=== PATIENT | male | born 1985 | race Caucasian/White ===

== ENCOUNTER 2017-01-23 21:34 | Emergency (ER) | payer OTHER ==
[~2017-01-23] VITALS: Ht 170.2 cm; Wt 72.6 kg
[~2017-01-23 21:34] MED LIST: ADVAIR 500-501 EACH; ALDACTONE25 MG PO; AMOXICILLIN875 MG PO; AZITHROMYCIN 2250 MG PO; COMBIVENT; DOXYCYCLINE 10100 MG PO; DUONEB 2.5-0.5 M3 ML; FLOVENT HFA 2220 MC1; HYDROCODONE-AP1 EAC6 PO; HYDROCODONE-APA10 ML PO; MEDROLDOSEPACK PO; NORCO 5-325 TA1 EAC1 PO; NORCO 5-325 TA1 EACH PO; ONDANSETRON HCL4 M2 PO; PENICILLIN VK500 MG PO; PERCOCET 10-321 EACH PO; PERCOCET 5-3251 EACH PO; PREDNISONE 20 M20 M1 PO; PREDNISONE 20 M20 MG PO; PREDNISONE50 MG PO; PROAIR HFA8.5 GM; PROVENTIL HFA6.7 G1 INH; SYMBICORT160 MCG/4. INH; TUMS; TUSSIONEX PENN473 ML PO; TUSSIONEX PENNKI1 ML PO; VENTOLIN HFA 1818 GM INH; VENTOLIN17 GM INH; VICODIN 5-5001 EACH PO; ZANAFLEX4 M1 PO; ZOFRAN4 MG PO; ZPAK PO
[2017-01-23 22:04] VITALS: BP 137/90
[2017-01-23] MEDS ORDERED: ZOFRAN ODT4 MG PO (22:14)
[2017-01-24] MEDS ORDERED: ONDANSETRON HCL4 M2 PO (17:05)
[2017-01-24] MEDS ORDERED: PRILOSEC OTC20 MG PO (17:05)
== END 2017-01-23 22:20 | disposition home or self-care (01) ==
LOC: ER 21:34
DX: G89.29 Other chronic pain (principal); R10.11 Right upper quadrant pain; R19.7 Diarrhea, unspecified; R11.0 Nausea; J45.909 Unspecified asthma, uncomplicated; Z90.49 Acquired absence of other specified parts of digestive tract; Z90.89 Acquired absence of other organs; Z88.6 Allergy status to analgesic agent; Z88.8 Allergy status to other drugs, medicaments and biological substances

== ENCOUNTER 2017-01-24 15:08 | Emergency (ER) | payer OTHER ==
[~2017-01-24] VITALS: Ht 170.2 cm; Wt 72.6 kg
[~2017-01-24 15:08] MED LIST changes: +ZOFRAN ODT4 MG PO
[2017-01-24 15:24] LABS: URINE BILIRUBIN NEGATIVE (Negative); URINE BLOOD 1+ (Negative); URINE COLOR YELLOW; URINE GLUCOSE-RANDOM* NEGATIVE (Negative); URINE KETONES NEGATIVE (Negative); URINE NITRITE NEGATIVE (Negative); URINE PROTEIN (DIPSTICK) NEGATIVE (Negative); URINE SPECIFIC GRAVITY 1.025 (1.003-1.035); URINE UROBILINOGEN 0.2 E.U./dl (0.2-1.0)
[2017-01-24 15:27] LABS: BACTERIA None Seen /HPF (None Seen); CASTS None Seen /LPF (None Seen); CRYSTALS None Seen /LPF (None Seen); SQUAMOUS None Seen /LPF (0-3); URINE RBC 0-2 Rare /HPF (0-2); URINE WBC None Seen /HPF (0-5)
[2017-01-24 15:46] LABS: ABSOLUTE NEUTROPHILS 4.5 thou/uL (1.4-8.2); BASOPHILS 0.9 % (0.0-2.0); EOSINOPHILS 8.8 % (0.0-3.0); HEMATOCRIT 40.5 % (42.0-52.0); HEMOGLOBIN 13.2 gm/dL (14.0-18.0); LYMPHOCYTES 23.9 % (24.0-44.0); MCH 25.7 pg (26.0-34.0); MCHC 32.5 g/dL (28.0-37.0); MCV 79.1 fL (80.0-100.0); MONOCYTES 7.9 % (1.0-8.0); PLATELET COUNT 362 thou/uL (150-400); POLYS 58.5 % (36.0-66.0); RBC 5.11 mil/uL (4.50-6.00); RDW 17.9 % (10.5-14.5); WBC 7.6 thou/uL (4.0-11.0)
[2017-01-24 15:47] LABS: MANUAL DIFF NO
[2017-01-24 15:53] LABS: CALCIUM 8.4 mg/dL (8.5-10.1); CREATININE 1.1 mg/dL (0.7-1.3); POTASSIUM 3.9 mmol/L (3.5-5.1)
[2017-01-24 15:58] LABS: ALBUMIN 3.7 g/dL (3.4-5.0); TOTAL BILIRUBIN 0.4 mg/dL (<0.1-1.0); TOTAL PROTEIN 6.6 g/dL (6.4-8.2)
[2017-01-24 17:04] VITALS: BP 118/78
[2017-01-24] MEDS ORDERED: PRILOSEC OTC20 MG PO (17:05)
[2017-01-24] MEDS ORDERED: ONDANSETRON HCL4 M2 PO (17:05)
== END 2017-01-24 17:20 | disposition home or self-care (01) ==
LOC: ER 15:08
PROVIDERS: Nurse Practitioner Family
DX: G89.29 Other chronic pain (principal); R10.31 Right lower quadrant pain; J45.909 Unspecified asthma, uncomplicated; Z90.49 Acquired absence of other specified parts of digestive tract; Z90.89 Acquired absence of other organs; Z88.6 Allergy status to analgesic agent; Z88.1 Allergy status to other antibiotic agents; Z88.8 Allergy status to other drugs, medicaments and biological substances

== ENCOUNTER 2017-01-29 13:49 | Emergency (ER) | payer OTHER ==
[~2017-01-29] VITALS: Ht 170.2 cm; Wt 72.6 kg
[~2017-01-29 13:49] MED LIST changes: +PRILOSEC OTC20 MG PO
[2017-01-29 14:16] LABS: BASOPHILS 0.8 % (0.0-2.0); HEMATOCRIT 43.2 % (42.0-52.0); LYMPHOCYTES 10.9 % (24.0-44.0); MCH 25.8 pg (26.0-34.0); MCHC 32.4 g/dL (28.0-37.0); MCV 79.6 fL (80.0-100.0); MONOCYTES 4.7 % (1.0-8.0); PLATELET COUNT 304 thou/uL (150-400); POLYS 79.6 % (36.0-66.0); RBC 5.43 mil/uL (4.50-6.00); RDW 17.9 % (10.5-14.5); WBC 11.3 thou/uL (4.0-11.0)
[2017-01-29 14:21] LABS: MANUAL DIFF NO
[2017-01-29 14:26] LABS: CREATININE 1.2 mg/dL (0.7-1.3); POTASSIUM 4.6 mmol/L (3.5-5.1)
[2017-01-29 14:27] LABS: CALCIUM 9.1 mg/dL (8.5-10.1)
[2017-01-29 14:31] LABS: ALBUMIN 4.1 g/dL (3.4-5.0); TOTAL BILIRUBIN 0.5 mg/dL (<0.1-1.0); TOTAL PROTEIN 7.3 g/dL (6.4-8.2)
[2017-01-29] MEDS ORDERED: CARAFATE 1 GM TA1 G1 PO (15:09)
[2017-01-29] MEDS ORDERED: PROTONIX 20 MG20 M1 PO (15:09)
[2017-01-29 15:13] VITALS: BP 125/88
[2017-01-29 15:13] LABS: URINE BILIRUBIN NEGATIVE (Negative); URINE BLOOD TRACE (Negative); URINE COLOR YELLOW; URINE GLUCOSE-RANDOM* NEGATIVE (Negative); URINE KETONES TRACE (Negative); URINE NITRITE NEGATIVE (Negative); URINE PROTEIN (DIPSTICK) NEGATIVE (Negative); URINE SPECIFIC GRAVITY 1.015 (1.003-1.035); URINE UROBILINOGEN 0.2 E.U./dl (0.2-1.0)
== END 2017-01-29 16:01 | disposition home or self-care (01) ==
LOC: ER 13:49
PROVIDERS: Physician Assistant
DX: G89.29 Other chronic pain (principal); R10.11 Right upper quadrant pain; R11.2 Nausea with vomiting, unspecified; J45.909 Unspecified asthma, uncomplicated; Z90.49 Acquired absence of other specified parts of digestive tract; Z98.890 Other specified postprocedural states; Z88.1 Allergy status to other antibiotic agents; Z88.5 Allergy status to narcotic agent; Z88.6 Allergy status to analgesic agent; Z88.8 Allergy status to other drugs, medicaments and biological substances